=== PATIENT | male | born 1965 | race Hispanic/Latino ===

== ENCOUNTER 2017-12-28 07:51 | Outpatient (CLI) | payer OTHER ==
--- NOTE | 2017-12-28 09:47 | Ultrasound Report ---
Testicular ultrasound: Enlarging scrotum. History of bilateral inguinal hernias. The right testicle measures 2.4 x 3.4 x 4.1 cm. It has a normal echo pattern. Normal flow. Multiple epididymal head cysts. The largest of these measures 15 mm. Moderate right hydrocele fluid. The left testicle measures 2.1 x 3.0 x 4.2 cm. It is also echogenically unremarkable with normal flow pattern. 3 mm abdomen head cyst. Small left hydrocele. No evidence of hernia sac. Impression: 1. Bilateral hydroceles right greater than left. 2. Bilateral epididymal head cysts right larger than left. Limited abdominal ultrasound: Right upper quadrant pain. Normal liver size and generally normal echogenicity. No focal lesion. Pancreatic body and head are normal in size. The tail is partially obscured. Mildly echogenic pancreas. Normal gallbladder. CBD diameter 4.4 mm. Right renal length of 13.7 cm with normal echo pattern and parenchymal thickness. No hydronephrosis. Transverse diameter of proximal abdominal aorta is 2.6 cm. Impression: Probable fatty pancreatic changes. No other significant finding.
--- NOTE | 2017-12-28 09:50 | Ultrasound Report ---
Multiple epididymal head cysts. The largest of these measures 15 mm. Moderate right hydrocele fluid. The left testicle measures 2.1 x 3.0 x 4.2 cm. It is also echogenically unremarkable with normal flow pattern. 3 mm abdomen head cyst. Small left hydrocele. No evidence of hernia sac. Impression: 1. Bilateral hydroceles right greater than left. 2. Bilateral epididymal head cysts right larger than left. Limited abdominal ultrasound: Right upper quadrant pain. Normal liver size and generally normal echogenicity. No focal lesion. Pancreatic body and head are normal in size. The tail is partially obscured. Mildly echogenic pancreas. Normal gallbladder. CBD diameter 4.4 mm. Right renal length of 13.7 cm with normal echo pattern and parenchymal thickness. No hydronephrosis. Transverse diameter of proximal abdominal aorta is 2.6 cm. Impression: Probable fatty pancreatic changes. No other significant finding.
[2017-12-28 10:07] LABS: Bilirubin,Urine NEG (Negative); Blood,Urine SM (Negative); Color,Urine Straw (Yellow); Protein,Urine <15 mg/dL mg/dL (Negative); Urobilinogen,Urine < 2.0 mg/dL (<2.0); WBC,Urine < 1.0 /HPF (0.0-6.0)
[2017-12-28 10:27] LABS: Calcium Oxalate Crystals,Urine FEW
== END 2017-12-28 07:52 | disposition home or self-care (01) ==
LOC: US 07:51
PROVIDERS: ATTEND Surgery
DX: R10.11 Right upper quadrant pain (principal); R94.5 Abnormal results of liver function studies; N50.89 Other specified disorders of the male genital organs; R31.9 Hematuria, unspecified; K40.20 Bilateral inguinal hernia, without obstruction or gangrene, not specified as recurrent; Z88.0 Allergy status to penicillin
CPT/HCPCS: 76705; 81001; 93975